=== PATIENT | female | born 1975 | race African-American/Black ===

== ENCOUNTER 2017-06-21 19:13 | Emergency (ER) | payer OTHER, MEDICAID ==
[2017-06-21] MEDS: HYDROmorphONE 0.5 MG/0.5 ML SYG IV ×2 (20:09→23:18)
[2017-06-21] MEDS: ONDANSETRON 4 MG INJ IV ×2 (20:10→23:17)
[2017-06-21 20:43] LABS: HEMATOCRIT 37.5 % (37.0-47.0); HEMOGLOBIN 12.8 g/dl (12.0-16.0); MEAN CORPUSCULAR HEMOGLOBIN 26.6 pg (29.0-33.0); MEAN CORPUSCULAR HGB CONC 34.1 g/dl (32.0-37.0); MEAN PLATELET VOLUME 10.1 fl (7.4-10.4); PLATELET COUNT 244 10^3/UL (140-415); RED BLOOD COUNT 4.81 10^6/ul (4.20-5.40); RED CELL DISTRIBUTION WIDTH 14.9 % (11.5-14.5)
[2017-06-21 20:50] LABS: ADD MAN DIFF? YES
[2017-06-21 21:00] LABS: INR 0.97; PARTIAL THROMBOPLASTIN TIME 29.5 Sec (25.0-35.0)
[2017-06-21 21:03] LABS: ALANINE AMINOTRANSFERASE 58 IU/L (13-69); ALBUMIN 4.2 g/dl (3.3-4.9); ALKALINE PHOSPHATASE 59 IU/L (42-121); ANION GAP 16 (8-16); ASPARTATE AMINO TRANSFERASE 39 IU/L (15-46); BILIRUBIN,INDIRECT 0.1 mg/dl (0-1.1); BILIRUBIN,TOTAL 0.1 mg/dl (0.2-1.3); BLOOD UREA NITROGEN 10 mg/dl (7-20); CALCIUM 9.1 mg/dl (8.4-10.2); CARBON DIOXIDE 23 mmol/L (21-31); CHLORIDE 103 mmol/L (97-110); CREATINE KINASE 175 IU/L (23-200); GLUCOSE 88 mg/dl (70-220); SODIUM 139 mmol/L (135-144); TOTAL PROTEIN 7.7 g/dl (6.1-8.1)
[2017-06-21 21:15] LABS: B-TYPE NATRIURETIC PEPTIDE 41 PG/ML (0-125); CK INDEX 1.5; CK-MB 2.55 ng/ml (0.0-2.4)
[2017-06-21 21:17] LABS: TROPONIN-I < 0.012 ng/ml (0.00-0.12)
[2017-06-21] MEDS: BELLADONNA/PHENOBARBITAL TAB PO (21:26)
[2017-06-21] MEDS: LIDOCAINE/MYLANTA 40 ML BTL PO (21:26)
[2017-06-21 21:41] LABS: ANISOCYTOSIS 1+ (0-0); BAND NEUTROPHILS % (M) 1 % (0-4); LYMPHOCYTES #M 1.4 10^3/ul (0.8-2.9); LYMPHOCYTES % (M) 36 % (15-51); MONOCYTE #M 0.5 10^3/ul (0.3-0.9); MONOCYTES % (M) 14 % (0-11); PLATELET ESTIMATE NORMAL; POLYCHROMASIA 1+ (0-0); SEGMENTED NEUTROPHILS (M) % 49 % (39-77); SMUDGE%M 8 % (0-0)
[2017-06-21] MEDS: IOHEXOL 0 ML ×2 (22:30→23:40)
[2017-06-21] MEDS: SOD CHLORIDE 0.9% 100 ML (22:30)
[2017-06-22 00:07] LABS: ADD UMIC YES; UR ASCORBIC ACID 40 mg/dL (NEGATIVE); UR BACTERIA FEW /HPF (NONE SEEN); UR BILIRUBIN (Dip) NEGATIVE (NEGATIVE); UR BLOOD (Dip) 3+ mg/dL (NEGATIVE); UR CLARITY SLIGHTLY CLOUDY (CLEAR); UR COLOR YELLOW (YELLOW); UR GLUCOSE (Dip) NEGATIVE (NEGATIVE); UR KETONES (Dip) TRACE mg/dL (NEGATIVE); UR LEUKOCYTE ESTERASE (Dip) TRACE Leu/ul (NEGATIVE); UR MUCUS MODERATE /HPF (NONE SEEN); UR NITRITE (Dip) NEGATIVE (NEGATIVE); UR RBC 40 /HPF (0-5); UR SPECIFIC GRAVITY (Dip) 1.027 (1.003-1.030); UR SQUAMOUS EPITHELIAL CELL FEW /HPF (FEW); UR TOTAL PROTEIN (Dip) 1+ mg/dl (NEGATIVE); UR UROBILINOGEN (Dip) NEGATIVE (NEGATIVE); UR WBC 13 /HPF (0-5)
== END 2017-06-22 03:32 | disposition home or self-care (01) ==
LOC: E/R 06-22 03:32
DX: R07.1 Chest pain on breathing (principal); I10 Essential (primary) hypertension; I50.9 Heart failure, unspecified
CPT/HCPCS: 71045; 71250; 80053; 81001; 82550; 82553; 83880; 84484; 85025; 85610; 85730; 93005; 96374; 96375; 96376; 99285-25